=== PATIENT | male | born 1950 | race Caucasian/White ===

== ENCOUNTER 2018-12-28 09:45 | Day surgery (SDC) | payer MEDICARE ==
[2018-12-28] MEDS ORDERED: PROPOFOL 10 MG/ML VIAL IV ONE (09:46)
[2018-12-28] MEDS ORDERED: LIDOCAINE 2% MDV (20MG/ML) 20ML VIAL IV ONE (09:46)
--- NOTE | 2018-12-28 12:00 | Operative Note ---
DATE OF SURGERY: OPERATION: COLONOSCOPY with cold snare and hot snare polypectomies. PREOPERATIVE DIAGNOSIS: Colon cancer screening, initial exam. POSTOPERATIVE DIAGNOSIS: Rectal polyp and sigmoid polyp. PREPARATION QUALITY: Good. ESTIMATED BLOOD LOSS: Minimum. COMPLICATIONS: None apparent. PROCEDURE: After informed consent was obtained from the patient, he was placed in the left lateral decubitus position in the endoscopy suite, sedated and monitored by the department of anesthesia. Digital rectal examination was unremarkable. A well-lubricated [id number] colonoscope was inserted into the rectum and advanced to the cecum. Preparation quality was good. The cecum, cecal bulb, ileocecal valve, appendiceal orifice, ascending colon, transverse colon, and descending colon were free of inflammatory changes, mass lesions, or polyps. There was a semi-pedunculated polyp in the sigmoid colon removed in piecemeal fashion with a polypectomy snare and ERBE Endocut current. No bleeding was noted at the site. A 4-5 mm sessile rectal polyp was identified and removed with a cold snare. Minimal bleeding was noted at the site. J-turn views of the anorectum and forward views of the rectum were otherwise unremarkable. The endoscope was straightened, the rectal ampulla deflated, and the endoscope was removed. RECOMMENDATIONS: The patient should follow a soft low-fiber diet for the next 2 weeks. He will require repeat colonoscopy in 3-5 years pending tissue histology. As always, thank you for allowing me to participate in the healthcare of your patients. CC: DO ELENA Kim
== END 2018-12-28 11:50 | disposition home or self-care (01) ==
LOC: HOP 09:45
PROVIDERS: ATTEND Internal Medicine Gastroenterology
DX: Z12.11 Encounter for screening for malignant neoplasm of colon (principal); D12.5 Benign neoplasm of sigmoid colon; K62.1 Rectal polyp; I10 Essential (primary) hypertension; E78.00 Pure hypercholesterolemia, unspecified